=== PATIENT | female | born 1985 | race Hispanic/Latino ===

== ENCOUNTER 2020-11-02 09:39 | Emergency (ER) | payer BC, SELFPAY ==
[2020-11-02 09:41] VITALS: BP 106/56; PULSE 75; RESP 22; TEMP 36.4; O2SAT 95; BMI 28.7
--- NOTE | 2020-11-02 09:56 | EKG12_ITS ---
Test Reason : CP Blood Pressure : / mmHG Vent. Rate : 077 BPM Atrial Rate : 077 BPM P-R Int : 130 ms QRS Dur : 076 ms QT Int : 374 ms P-R-T Axes : 050 063 058 degrees QTc Int : 423 ms Normal sinus rhythm with sinus arrhythmia Normal ECG Confirmed by MEGHA MCCLAIN, JAGJIT ([id number]), editor sound [place] ([id number]) on 11/05/2020 9:48:36 AM Referred By: VERA Confirmed By:JAGJIT CLEVELAND MD
--- NOTE | 2020-11-02 10:08 | EDS_ITS ---
HPI History of Present Illness Chief Complaint: Seizure Informant: patient Onset/Context/Timing Onset: Today Timing: Intermittent Current Severity: Mild Maximum Severity: Mild Narrative Narrative: 35-year-old female reported history of seizures which she does not take any medications for she prefers to be treated holisticly. Patient also h as chronic chest pain and reportedly history of SVT. She states she treats her chest pain with cannabis and occasional [place]. Patient states she reportedly had several seizures today at home. And she needs something for her pain. She denies any recent illness. She denies any recent hospitalization. Currently there is no one here with her and she was brought in by paramedics. She lives in [place] she is reportedly visiting family here in [place] and has had prescriptions filled in [place]. Patient denies any drug abuse other than her use of cannabis. Prior similar symptoms: Yes Recent Illness/Hospitalization: No PFSH PFSH Medical History Epilepsy SVT (supraventricular tachycardia) Home Medications hydrocodone-acetaminophen 1 tab PO PRN PRN 11/02/20 [History Last Taken Unknown] Allergy/AdvReac Type Severity Reaction Status Date / Time No Known Allergies Allergy Verified 11/02/20 09:48 Social History Smoking Status: Current some day smoker tobacco type: cigarettes Smokeless tobacco user: other substance use type: marijuana ROS ROS ED ROS Narrative Denies recent illness. Review of Systems ROS Unobtainable: Denies due to encephalopathy or due to endotracheal tube Constitutional Constitutional ED: Denies chills or fever(s) Eyes Eyes: Denies change in vision ENT ENT ED: Denies ear pain or sore throat Cardiovascular Cardiovascular: Reports chest pain Respiratory/Chest Respiratory/Chest: Denies cough or dyspnea Gastrointestinal Gastrointestinal: Denies abdominal pain, diarrhea, nausea or vomiting Genitourinary Genitourinary ED: Denies dysuria or hematuria Musculoskeletal Musculoskeletal: Denies arthralgias or myalgias Integumentary Denies abscess or rash Neurologic Neurologic: Denies headache(s) Psychiatric Psychiatric: Denies depression Endocrine Endocrinology: Denies polyuria Allergic/Immunologic Allergic/Immunologic ED: Denies urticaria EXAM Physical Exam Narrative Exam Narrative: Young female sitting upright in bed. Requesting pain medication. Vital signs are stable afebrile. Her heart rate 75. HEENT exam unremarkable. Pupils are round reactive to light. Neck nontender no lymphadenopathy. Lungs clear to auscultation bilaterally. Heart regular rhythm rate about 90. No murmur. Abdomen soft nontender normal bowel sounds no peritoneal signs. Patient is moving all 4 extremities. No edema or cords. No track flores. No tenderness. Back nontender. Multiple tattoos. Neurologically she is awake and alert. Clinically the patient looks like she may be withdrawing. She denies any drug abuse however. Const Vital Signs: 11/02/20 09:41 Temperature 97.6 F L Temperature Source Temporal Pulse Rate 75 Respiratory Rate 22 H Blood Pressure 106/56 L Blood Pressure Mean 72 Pulse Ox 95 Oxygen Delivery Method Room Air Positive well nourished and well developed; Negative for cachectic, contractures or unkempt General Appearance ED: well developed and NAD; Negative for unkempt, cachectic, contractures, cyanotic or diaphoretic Nutritional Appearance: Negative for cachectic HEENT Reports moist mucous membranes Negative for trauma or tenderness Eyes PERRL and EOMs intact bilaterally Neck no lymphadenopathy, supple and no JVD General: Negative for tenderness Chest Wall inspection of chest normal and palpation of chest normal Resp normal respiratory effort and clear to auscultation bilaterally Cardio regular rate, regular rhythm, S1 normal heart sound, S2 normal heart sound and no murmurs GI normal to inspection, nondistended, normoactive bowel sounds, non-tender and non-distended Auscultation: normoactive bowel sounds Palpation: soft Back/Spine no CVA tenderness General Back: Negative for CVA tenderness Cervical Spine: Negative for cervical spine tenderness Thoracic Spine / Upper Back: Negative for thoracic spinal tenderness Extremity normal to inspection General Extremety ED: Negative for edema or tenderness General Extremity: Negative for edema Neuro oriented x3 and CN's II-XII intact bilaterally Sensorium / Orientation: alert; Negative for lethargic or stuporous Motor Exam: strength 5/5 throughout Psych mental status grossly normal Appearance: Negative for unkempt Attitude: agitated Mood & Affect: anxious Skin no rashes or lesions noted, no wounds and skin turgor normal Skin Narrative: No track flores seen. MDM MDM MDM Narrative Medical decision making narrative: 35-year male presents with reported seizures but is not on any seizure medications. She is requesting pain medications and seems like she is withdrawing but denies drug abuse. She will be given IV Toradol. An EKG was obtained due to her chest pain but she has chronic history of chest pain it is unremarkable. Rhythm Strip Rhythm Strip: Sinus Rhythm Rate: 77 Ectopy: None EKG Initial EKG: Attestation: I personally reviewed and interpreted this EKG as follows: Interpretation: Sinus Rhythm and No Acute Injury Pattern Comments: Normal sinus rhythm rate of 77 no acute signs of CT or ischemia or dysrhythmia. Prior EKG from 2010 is unchanged. Discharge Plan Triage Chief Complaint: Seizure ED Provider: Lamont Thurston Dx/Rx/DC Orders Clinical Impression: Drug-seeking behavior Instructions: ED Seizure, Recurrent (Adult), ED Drug Abuse Prescriptions: No Action hydrocodone-acetaminophen 5-325 mg tablet 1 tab PO PRN PRN (Reason: SVT) RF: 0 Primary Care Provider: Job Astudillo,Out of Referrals: Job Astudillo,Out of [Primary Care Provider] - Sujata Fragoso [NON-STAFF] - As Needed Activity Restrictions/Additional Instructions: Follow-up with your primary care doctor. Motrin and Tylenol for pain. Disposition Disposition: Home, Self Care
[2020-11-02] MEDS: Ketorolac 30 MG/ML Syringe IV (10:19)
--- NOTE | 2020-11-02 10:31 | ED.RN ---
PT REFUSES TO STAY IN BED OR LEAVE HER MONITOR ON, THIS RN EDUCATED THE PT THAT FOR HER SAFETY SHE NEEDS TO LEAVE THE MONITOR ON AND REMAIN IN SEIZURE PRECAUTIONS, PT STILL REFUSES. DR. GAMEZ MADE AWARE. NO FURTHER ORDERS AT THIS TIME. WILL CONTINUE TO MONITOR THE PT.
--- NOTE | 2020-11-02 10:50 | ED.RN ---
PT VERBALIZING DISPLEASURE OF D/C INSTRUCTIONS. MD IN ROOM DURING D/C. PT TO BE RELEASED WITH SIGNIFICANT OTHER.
--- NOTE | 2020-11-02 10:51 | ED.RN ---
SEE PREVIOUS NOTES.
[2020-11-02 10:53] VITALS: BP 100/65; PULSE 78; RESP 17; O2SAT 99
== END 2020-11-02 11:14 | disposition home or self-care (01) ==
LOC: ED 11:12
PROVIDERS: Emergency Provider Emergency Medicine
DX: R07.9 Chest pain, unspecified (principal); Z76.5 Malingerer [conscious simulation]; F17.210 Nicotine dependence, cigarettes, uncomplicated
CPT/HCPCS: 93005; 96374; 99284; A4216